=== PATIENT | male | born 1950 | race Hispanic/Latino ===

== ENCOUNTER → 2021-12-26 | Outpatient (CLI) | payer OTHER ==
[~2021-12-26] MED LIST: LISI20TA24 PO
== END | disposition home or self-care (01) ==
LOC: RAH 12:31
PROVIDERS: ATTEND Family Medicine
DX: G45.9 Transient cerebral ischemic attack, unspecified (principal)
CPT/HCPCS: 93880

== ENCOUNTER → 2022-01-25 | Outpatient (CLI) | payer OTHER | END | disposition home or self-care (01) | LOC: RAH 13:13 | PROVIDERS: ATTEND Internal Medicine | DX: I35.1 Nonrheumatic aortic (valve) insufficiency (principal); I11.9 Hypertensive heart disease without heart failure; I77.810 Thoracic aortic ectasia; G45.9 Transient cerebral ischemic attack, unspecified | CPT/HCPCS: 93306; 96374; A4216 ==

== ENCOUNTER → 2022-03-29 | Outpatient (CLI) | payer OTHER | END | disposition home or self-care (01) | LOC: RAH 13:03 | PROVIDERS: ATTEND Family Medicine | DX: Z01.818 Encounter for other preprocedural examination (principal) | CPT/HCPCS: 93926 ==

== ENCOUNTER → 2022-07-12 | Outpatient (CLI) | payer OTHER ==
[~2022-07-12] MED LIST changes: +AEC81 PO; +AMLO-258 PO; +ATOR10 PO; +ATOR40TA69 PO; +LISI40TA9 PO; +METF-444 PO; +METO5 PO; +PANT40TA55 PO
[2022-07-12 12:34] VITALS: BP 138/75
[2022-07-12 12:34] LABS: BASOPHILS % (AUTO) 1.3 % (0.0-5.0); EOSINOPHILS % (AUTO) 4.4 % (0.0-8.0); LYMPHOCYTES % (AUTO) 21.1 % (21.0-51.0); MEAN CORPUSCULAR HEMOGLOBIN 30.9 pg (27.0-33.0); MEAN CORPUSCULAR HGB CONC 33.3 g/dL (32.0-36.0); MEAN CORPUSCULAR VOLUME 92.6 fL (79-99); MONOCYTES % (AUTO) 13.4 % (3.0-13.0); NEUTROPHILS % (AUTO) 59.6 % (40.0-77.0); PLATELET COUNT (AUTO) 192 K/uL (130-400); RED BLOOD CELL COUNT(AUTO) 4.86 MIL/uL (4.50-6.20); RED CELL DISTRIBUTION WIDTH 12.6 % (11.0-15.5); WHITE BLOOD COUNT (AUTO) 5.4 K/uL (4.8-10.8)
[2022-07-12 12:50] LABS: INR 1.05 (0.85-1.15); PROTHROMBIN TIME 11.4 SEC (9.6-11.6)
[2022-07-12 12:51] LABS: PARTIAL THROMBOPLASTIN TIME 29.8 SEC (26.3-35.5)
[2022-07-12 13:09] LABS: POTASSIUM 4.4 mmol/L (3.5-5.1)
== END | disposition home or self-care (01) ==
LOC: DAH 10:00 → EDSTATUS 07-18 07:00
PROVIDERS: ATTEND Orthopaedic Surgery
DX: Z01.818 Encounter for other preprocedural examination (principal); M17.12 Unilateral primary osteoarthritis, left knee; M85.88 Other specified disorders of bone density and structure, other site; K21.9 Gastro-esophageal reflux disease without esophagitis; I13.10 Hypertensive heart and chronic kidney disease without heart failure, with stage 1 through stage 4 chronic kidney disease, or unspecified chronic kidney disease; E11.22 Type 2 diabetes mellitus with diabetic chronic kidney disease; N18.2 Chronic kidney disease, stage 2 (mild); I49.3 Ventricular premature depolarization; I35.1 Nonrheumatic aortic (valve) insufficiency; E55.9 Vitamin D deficiency, unspecified; I73.89 Other specified peripheral vascular diseases; I83.93 Asymptomatic varicose veins of bilateral lower extremities; E78.00 Pure hypercholesterolemia, unspecified; N40.1 Benign prostatic hyperplasia with lower urinary tract symptoms; Z79.899 Other long term (current) drug therapy; Z20.822 Contact with and (suspected) exposure to COVID-19
CPT/HCPCS: 80048; 85025; 85610; 85730; 87426; 36415; 73700; 87641; A6260

== ENCOUNTER 2022-08-15 05:57 | Observation (INO) | payer OTHER ==
[2022-08-14 11:44] LABS: BASOPHILS % (AUTO) 0.9 % (0.0-5.0); EOSINOPHILS % (AUTO) 5.3 % (0.0-8.0); HEMATOCRIT 42.4 % (42-54); LYMPHOCYTES % (AUTO) 26.1 % (21.0-51.0); MEAN CORPUSCULAR HEMOGLOBIN 30.5 pg (27.0-33.0); MEAN CORPUSCULAR HGB CONC 32.5 g/dL (32.0-36.0); MEAN CORPUSCULAR VOLUME 93.8 fL (79-99); MONOCYTES % (AUTO) 10.4 % (3.0-13.0); NEUTROPHILS % (AUTO) 56.9 % (40.0-77.0); PLATELET COUNT (AUTO) 150 K/uL (130-400); RED BLOOD CELL COUNT(AUTO) 4.52 MIL/uL (4.50-6.20); WHITE BLOOD COUNT (AUTO) 5.3 K/uL (4.8-10.8)
[2022-08-14 12:11] VITALS: BP 156/80
[2022-08-14 12:13] LABS: CREATININE 0.8 mg/dL (0.5-1.5); POTASSIUM 4.2 mmol/L (3.5-5.1); PROTHROMBIN TIME 10.9 SEC (9.6-11.6)
[~2022-08-15] VITALS: Ht 180.3 cm; Wt 85.3 kg
[2022-08-15] VITALS (25 sets, daily range): BP systolic 92–143; BP diastolic 56–85
[~2022-08-15 05:57] MED LIST changes: -ATOR10 PO; -LISI20TA24 PO; -LISI40TA9 PO; -METO5 PO
[2022-08-15] MEDS ORDERED: CEFAZOLIN SODIUM 1 GM VIAL IVPB SCH (06:00)
[2022-08-15] MEDS ORDERED: 0.9%NACL 1000ML 1,000 ML IV ONE (06:41)
[2022-08-15] MEDS ORDERED: TRANEXAMIC ACID 1000MG/10ML ONE (07:22)
[2022-08-15] MEDS ORDERED: LIDOCAINE PF 100MG/5ML (2%) SYRINGE 5ML ONE (07:28)
[2022-08-15] MEDS ORDERED: SUCCINYLCHOLINE 200MG/10ML SYR ONE (07:28)
[2022-08-15] MEDS ORDERED: ROCURONIUM 10MG/1ML SYR 10 MG/ML ML ONE (07:29)
[2022-08-15] MEDS ORDERED: DEXAMETHASONE SOD PHOSPHATE 10MG/ML 1ML VIAL ONE (07:29)
[2022-08-15] MEDS ORDERED: ONDANSETRON 4MG INJ ONE (07:29)
[2022-08-15] MEDS ORDERED: PROPOFOL 10 MG/ML 20ML VIAL IV ONE (07:29)
[2022-08-15] MEDS ORDERED: GLYCOPYRROLATE 1 MG/5 ML SYRINGE ONE (07:29)
[2022-08-15] MEDS ORDERED: NEOSTIGMINE 5MG/5ML SYR IV ONE (07:29)
[2022-08-15] MEDS ORDERED: MIDAZOLAM HCL 1 MG/ML 2ML VIAL ONE (07:29)
[2022-08-15] MEDS ORDERED: FENTANYL CITRATE PF 50 MCG/1 ML 2ML VIAL ONE (07:30)
[2022-08-15] MEDS ORDERED: ROPIVACAINE 0.5% 5MG/ML 30ML IJ ONE (07:40)
[2022-08-15] MEDS ORDERED: LIDOCAINE HCL-MPF 2% 10ML AMP IJ ONE (07:43)
[2022-08-15] MEDS ORDERED: CEFAZOLIN SODIUM 2 GM VIAL IVPB ONE (08:35)
[2022-08-15] MEDS ORDERED: EPHEDRINE SULFATE 50 MG/ML AMPULE ONE (09:00)
[2022-08-15] MEDS ORDERED: POTASSIUM CHLORIDE 10% ELIXIR 20 MEQ/15 ML UDCUP PO PRN (09:30)
[2022-08-15] MEDS ORDERED: POTASSIUM CHLORIDE 20MEQ/100ML 100 ML IV PRN (09:30)
[2022-08-15] MEDS ORDERED: KCL 20 MEQ ERTAB PO PRN (09:30)
[2022-08-15] MEDS ORDERED: ONDANSETRON 4MG INJ IVP PRN (09:30)
[2022-08-15] MEDS ORDERED: HYDROCODONE/ACETAMINOPHEN 5/325 MG TAB PO PRN (09:30)
[2022-08-15] MEDS ORDERED: MORPHINE 4 MG SYG IVP PRN (09:30)
[2022-08-15] MEDS ORDERED: KETOROLAC 30MG VIAL (30MG/ML) ONE (10:12)
[2022-08-15] MEDS: ACETAMINOPHEN 1,000 MG/100 ML VIAL IV SCH ×3 (11:28→20:05)
[2022-08-15] MEDS ORDERED: MEPERIDINE-PF 25 MG/ML SYG ONE (11:31)
[2022-08-15] MEDS: TRAMADOL HCL 50 MG TABLET PO SCH ×4 (12:00→20:06)
[2022-08-15] MEDS: 0.9%NACL 1000ML 1,000 ML IV SCH ×2 (12:31→20:05)
[2022-08-15] MEDS: IBUPROFEN 800MG + NS 250ML IV SCH ×2 (13:37→20:05)
[2022-08-15] MEDS: CEFAZOLIN SODIUM 2 GM VIAL IVPB SCH (15:05)
[2022-08-15] MEDS: ASPIRIN 81 MG EC TAB PO SCH (20:06)
[2022-08-15] MEDS: PANTOPRAZOLE 40 MG TAB DR PO SCH (20:06)
[2022-08-15] MEDS: FAMOTIDINE 20MG TAB PO SCH (20:06)
[2022-08-16] VITALS (8 sets, daily range): BP systolic 95–170; BP diastolic 53–84
[2022-08-16] MEDS: CEFAZOLIN SODIUM 2 GM VIAL IVPB SCH (00:01)
[2022-08-16] MEDS: IBUPROFEN 800MG + NS 250ML IV SCH (03:10)
[2022-08-16] MEDS: TRAMADOL HCL 50 MG TABLET PO SCH ×3 (03:11→17:32)
[2022-08-16 04:50] LABS: HEMATOCRIT 36.9 % (42-54); MEAN CORPUSCULAR HEMOGLOBIN 30.3 pg (27.0-33.0); MEAN CORPUSCULAR VOLUME 94.6 fL (79-99); RED BLOOD CELL COUNT(AUTO) 3.9 MIL/uL (4.50-6.20); RED CELL DISTRIBUTION WIDTH 13.2 % (11.0-15.5); WHITE BLOOD COUNT (AUTO) 6.6 K/uL (4.8-10.8)
[2022-08-16 05:02] LABS: CREATININE 0.8 mg/dL (0.5-1.5); POTASSIUM 3.7 mmol/L (3.5-5.1)
[2022-08-16] MEDS: HYDROCODONE/ACETAMINOPHEN 10/325 MG TAB PO PRN ×3 (06:16→20:17)
[2022-08-16] MEDS: METFORMIN HCL 500 MG TAB.SR.24H PO SCH (08:57)
[2022-08-16] MEDS: ASPIRIN 81 MG EC TAB PO SCH ×2 (08:57→20:17)
[2022-08-16] MEDS: FAMOTIDINE 20MG TAB PO SCH ×2 (08:58→20:17)
[2022-08-16] MEDS: POLYETHYLENE GLYCOL 3350 17 GM POWD.PACK PO SCH (08:58)
[2022-08-16] MEDS: AMLODIPINE 5 MG TAB PO SCH (08:58)
[2022-08-16] MEDS: PANTOPRAZOLE 40 MG TAB DR PO SCH ×2 (08:58→20:17)
[2022-08-17] MEDS: HYDROCODONE/ACETAMINOPHEN 10/325 MG TAB PO PRN ×4 (01:13→15:46)
[2022-08-17 03:56] VITALS: BP 133/77
[2022-08-17] MEDS: TRAMADOL HCL 50 MG TABLET PO SCH ×4 (05:15→15:41)
[2022-08-17] MEDS: AMLODIPINE 5 MG TAB PO SCH (07:50)
[2022-08-17] MEDS: ASPIRIN 81 MG EC TAB PO SCH (07:50)
[2022-08-17] MEDS: METFORMIN HCL 500 MG TAB.SR.24H PO SCH (07:50)
[2022-08-17] MEDS: FAMOTIDINE 20MG TAB PO SCH (07:50)
[2022-08-17] MEDS: POLYETHYLENE GLYCOL 3350 17 GM POWD.PACK PO SCH (07:50)
[2022-08-17] MEDS: PANTOPRAZOLE 40 MG TAB DR PO SCH (07:50)
[2022-08-17 07:54] VITALS: BP 156/95
[2022-08-17 11:32] VITALS: BP 160/85
[2022-08-17 15:27] VITALS: BP 142/69
[2022-08-18] MEDS ORDERED: BISACODYL 10 MG SUPP.RECT RC PRN (09:30)
== END 2022-08-17 16:30 | disposition home or self-care (01) ==
LOC: DAH 05:57 → DAHIP 05:58 → DAH 05:58 → 4AH 12:15
PROVIDERS: ADMIT Orthopaedic Surgery; ATTEND Orthopaedic Surgery
DX: M17.12 Unilateral primary osteoarthritis, left knee (principal); Z20.822 Contact with and (suspected) exposure to COVID-19; I10 Essential (primary) hypertension; E11.9 Type 2 diabetes mellitus without complications; E78.00 Pure hypercholesterolemia, unspecified; Z68.27 Body mass index [BMI] 27.0-27.9, adult; Z79.899 Other long term (current) drug therapy
CPT/HCPCS: 80048 ×2; 85025; 85610; 85730; 87426; 36415 ×2; 87641; 27447; 64447; 96376; 96365; 96366 ×2; 96375 ×3; 96368; 82948 ×2; 85027; 97161; 97039 ×3; 97116 ×4; 97530 ×3; A6260; G0378 ×53; A4663; J7030 ×2; A4600 ×2; J3010; J0690 ×4; J3490 ×4; J0330; J1100; J2710; J2001; J2250; J2704; J2405 ×2; J1885; J2175; J2795; J1741 ×3; A6223; G0168; A4649 ×3; A6212; C1776 ×4; A5120; A4215; A4223; A4222; A4221; A6450; J2270

== ENCOUNTER 2024-08-05 18:11 | Inpatient (IN) | payer OTHER ==
[~2024-08-05] VITALS: Ht 177.8 cm; Wt 86.6 kg
[2024-08-05] MEDS ORDERED: IOHEXOL 350 MG/ML 100ML INFUS..BTL IV ONE (18:28)
[2024-08-05 18:39] LABS: BASOPHILS # (AUTO) 0.08 K/uL (0.00-0.20); BASOPHILS % (AUTO) 0.6 % (0.0-5.0); EOSINOPHILS # (AUTO) 0.02 K/uL (0.00-0.70); EOSINOPHILS % (AUTO) 0.1 % (0.0-8.0); IMMATURE GRANULOCYTE ABSOLUTE 0.08 K/uL (0-1); LYMPHOCYTES # (AUTO) 1.5 K/uL (1.0-4.8); LYMPHOCYTES % (AUTO) 10.9 % (21.0-51.0); MEAN CORPUSCULAR HEMOGLOBIN 31.6 pg (27.0-33.0); MEAN CORPUSCULAR HGB CONC 33.3 g/dL (32.0-36.0); MEAN CORPUSCULAR VOLUME 94.9 fL (79-99); MONOCYTES # (AUTO) 1.1 K/uL (0.1-1.0); NEUTROPHILS # (AUTO) 11.2 K/uL (1.8-7.7); NEUTROPHILS % (AUTO) 79.8 % (40.0-77.0); PLATELET COUNT (AUTO) 218 K/uL (130-400); RED BLOOD CELL COUNT(AUTO) 5.06 MIL/uL (4.50-6.20); RED CELL DISTRIBUTION WIDTH 13.3 % (11.0-15.5); WHITE BLOOD COUNT (AUTO) 14.1 K/uL (4.8-10.8)
--- NOTE | 2024-08-05 18:44 | ERN ---
ED Note History of Present Illness Stated Complaint: FALL Chief Complaint: Trauma Activation Time Seen by MD: 18:15 Time Seen by Midlevel: 18:15 Dictation: 74-year-old male presents to the ED for evaluation after falling 2 hours prior to arrival. Patient reports ground level fall when he hit a rail with a left shoulder and also hit his head. Denies LOC, blood thinners. Reports swelling noted to the neck and head. Denies any difficulty breathing. Allergies: Coded Allergies: No Known Drug Allergies (Unverified Allergy, Unknown, 02/04/15) Home Meds Active Scripts Amlodipine Besylate (Amlodipine Besylate) 10 Mg Tablet, 10 MG PO DAILY for 30 Days, #30 TAB 0 Refills Prov:ILAN HENAO 07/20/22 Pantoprazole Sodium (Protonix) 40 Mg Ectab, 40 MG PO BID, #60 TAB.EC Prov:ILAN HENAO 07/20/22 Reported Medications Aspirin (ASPIRIN 81 MG ECTAB) 81 Mg Ectab, 81 MG PO DAILY, TAB.EC 07/16/22 Atorvastatin Calcium (LIPITOR) 40 Mg Tablet, 40 MG PO DAILY, TAB 07/16/22 Metformin HCl (Metformin HCl) 500 Mg Tablet, 500 MG PO DAILY, TAB 07/16/22 Past Medical History Past Medical History: No Pertinent History, High Cholesterol, Hypertension Surgical History: Other Surgical History Other: RIGHT KNEE SURGERY RN Note Reviewed/Agreed w/PFSH: Yes Review of System Dictation CONSTITUTIONAL: Negative except for HPI HEAD/FACE: Negative except for HPI EENT: Negative except for HPI RESPIRATORY: Negative except for HPI GASTROINTESTINAL/ABDOMINAL: Negative except for HPI GENITOURINARY: Negative except for HPI MUSCULOSKELETAL: Negative except for HPI INTEGUMENTARY: Negative except for HPI NEUROLOGICAL/PSYCH: Negative except for HPI HEMATOLOGIC/LYMPHATIC: Negative except for HPI All Systems Negative, Except as noted above. 13 point review of systems assessed and all negative except for above. Review of Systems: was completed Initial Vital Sign VS Vital Signs Date Time Temp Pulse Resp B/P (MAP) Pulse Ox O2 Delivery O2 Flow Rate FiO2 08/05/24 18:13 98.1 89 20 161/88 96 Room Air 0 Physical Exam Dictation Vital Signs reviewed General Appearance: Alert, oriented x 3, no acute distress, well developed, nourished. Head and Face: non-traumatic. Eyes: PERRL, pink conjunctivas, eyelid no trauma, anterior chamber with arcus senilis. Ears: Pinnas intact and no signs of trauma or erythema ear canals clear and no discharge TM no erythema Nose: No discharge, no bleeding. Oropharynx: Mouth normal, tongue pink, pharynx clear,no erythema, tonsils no exudates, no abscesses noted, mucous membrane moist Neck: Supple, non-tender, no thyromegaly, no masses, no JVD, no bruits Breast:Deferred Chest:No tenderness, + crepitus to left chest wall area and neck, no paradoxical movement, no retractions Lungs:Clear, well-ventilated, symmetric, no rales, no wheezing, no rhonchi, no stridor, good breath sounds bilaterally Heart: Regular rate, regular rhythm, no murmur, no gallops Vascular: no peripheral edema, Abdomen: Soft, positive bowel sounds, nondistended, no guarding, nontender, no rebound, no masses no hepatomegaly, no splenomegaly, no Bartholomew's sign, no hernias. Rectal: Deferred Genital: Deferred Neurological: Normal speech, motor function intact, sensory function intact Musculoskeletal: Neck nontender, full range of motion, back nontender, full range of motion, Extremities: nontender, full range of motion Skin: Color pink, dry, no turgor, no rash, no lacerations, no abrasions, no contusions. Lymphatic: Deferred Results (Laboratory/Radiology) Laboratory/Radiology Laboratory Tests Test 08/05/24 18:27 White Blood Count 14.1 K/uL (4.8-10.8) H Red Blood Count 5.06 MIL/uL (4.50-6.20) Hemoglobin 16.0 g/dL (14.0-18.0) Hematocrit 48.0 % (42-54) Mean Corpuscular Volume 94.9 fL (79-99) Mean Corpuscular Hemoglobin 31.6 pg (27.0-33.0) Mean Corpuscular Hemoglobin Concent 33.3 g/dL (32.0-36.0) Red Cell Distribution Width 13.3 % (11.0-15.5) Platelet Count 218 K/uL (130-400) Mean Platelet Volume 11.1 fL (7.5-10.5) H Immature Granulocyte % (Auto) 0.6 % (0-1) Neutrophils (%) (Auto) 79.8 % (40.0-77.0) H Lymphocytes (%) (Auto) 10.9 % (21.0-51.0) L Monocytes (%) (Auto) 8.0 % (3.0-13.0) Eosinophils (%) (Auto) 0.1 % (0.0-8.0) Basophils (%) (Auto) 0.6 % (0.0-5.0) Neutrophils # (Auto) 11.2 K/uL (1.8-7.7) H Lymphocytes # (Auto) 1.5 K/uL (1.0-4.8) Monocytes # (Auto) 1.1 K/uL (0.1-1.0) H Eosinophils # (Auto) 0.02 K/uL (0.00-0.70) Basophils # (Auto) 0.08 K/uL (0.00-0.20) Absolute Immature Granulocyte (auto 0.08 K/uL (0-1) Nucleated Red Blood Cells 0.0 % (0.0-0.19) Prothrombin Time 10.9 SEC (9.6-11.6) Prothromb Time International Ratio 1.03 (0.85-1.15) Activated Partial Thromboplast Time 24.5 SEC (26.3-35.5) L Sodium Level 142 mmol/L (136-145) Potassium Level 4.3 mmol/L (3.5-5.1) Chloride Level 106 mmol/L (101-111) Carbon Dioxide Level 31 mmol/L (21-32) Blood Urea Nitrogen 25 mg/dL (7-18) H Creatinine 1.6 mg/dL (0.5-1.3) H Glomerular Filtration Rate Calc 45 mL/min (>90) Random Glucose 112 mg/dL (70-105) H Total Calcium 9.3 mg/dL (8.5-10.1) Troponin I High Sensitivity 8 ng/L (4-75) Labs Reviewed?: Yes ED Course ED Course Orders Procedure Category Date Status Time Ct Head/Brain W/O CT 08/05/24 Resulted Contrast 18:22 Ct Cervical Spine W/O CT 08/05/24 Resulted Contrast 18:22 Ct Chest/Abd/Pelv CT 08/05/24 Resulted W/Conrast 18:22 Shoulder Comp 2+Vws Lt RAD 08/05/24 Resulted 18:22 Iohexol (Omnipaque) PHA 08/05/24 Complete 18:28 Cbc With Differential LAB 08/05/24 Complete 18:32 Basic Metabolic Panel LAB 08/05/24 Complete 18:32 Pt And Ptt LAB 08/05/24 Complete 18:32 12 Lead Ekg Tracing- EKG 08/05/24 Complete Technical 18:32 Troponin I High LAB 08/05/24 Complete Sensitivity 18:32 *Nursing CPOE 08/05/24 Transmitted Communication: 19:00 Current Medications Medications (Trade) Dose Ordered Sig/Judi Route PRN Reason Start Time Stop Time Status Last Admin Dose Admin Iohexol (Omnipaque) 35,000 mg STK-MED ONCE IV 08/05/24 18:28 08/05/24 18:28 DC Vital Signs Date Time Temp Pulse Resp B/P (MAP) Pulse Ox O2 Delivery O2 Flow Rate FiO2 08/05/24 18:13 98.1 89 20 161/88 96 Room Air 0 1847 Patient also evaluated by supervising physician Dr. Da Silva and care was transitioned to him. 190 Patient care transitioned to Dr. Drake Medical Decision Making MDM Patient's CT scan of his head was negative except for extensive subcutaneous air along both sides of his neck. CT scan of patient's abdomen was negative except for subcutaneous air along the abdominal wall. CT scan of the patient's chest shows extensive pneumomediastinum extensive subcu emphysema and a small apical pneumothorax on the patient's left chest as well as to displaced rib fractures on T4 and T3. Clavicles intact.. The patient is breathing comfortably maintaining greater than 90% oxygen saturations on room air and complaining of not much pain on his left chest wall. I discussed the patient with the trauma surgeon at [facility] who felt that the patient was stable enough to be observed here if our general surgeon on-call would be willing to accept the patient. I did talk with Dr. Duncan and he is willing to observe the patient on telemetry. Critical Care Note Critical Time: 30 minutes (Critical care time approximately 30 minutes observing the patient on telemetry observing his vital signs and oxygen saturation. Patient is now stable for telemetry.) DX & DISP Disposition: Inpatient Departure Impression: Primary Impression: Ribs, multiple fractures Condition: Stable Referrals: CARITO ROBLES MD (PCP) NELLA HURLEY August 05, 2024 18:44 DARLING DRAKE MD August 05, 2024 19:23
[2024-08-05 18:46] LABS: CREATININE 1.6 mg/dL (0.5-1.3); POTASSIUM 4.3 mmol/L (3.5-5.1)
--- NOTE | 2024-08-05 18:48 | HMCIMG ---
CT HEAD WITHOUT CONTRAST INDICATION: Fall TECHNIQUE: Noncontrast axial helical CT images from the vertex through the skull base using 5 mm slice thickness without contrast material. Coronal and sagittal reconstructions were also included. Dose reduction techniques was used using integrated, automated and adaptive dose reduction exposure control. CT was performed with one or more of the following dose reduction techniques: Automated exposure control, adjustment of the mA and/or kV according to patient size, or use of iterative reconstruction technique. COMPARISON: 04/06/2022 MR brain FINDINGS: Scattered and coalescent subcortical and periventricular white matter low attenuating areas likely represent residual of chronic small vessel arteriopathy and/or remote vascular insult. Generalized mild cerebral cortical atrophy is present.. No evidence for abnormal extra-axial fluid collections or masses. The ventricles and sulci are normal in size and configuration. No evidence for intracranial parenchymal, epidural, or subdural hemorrhage, mass effect or midline shift. The stark-white matter differentiation is well preserved. No secondary evidence to suggest acute ischemia. Mild calcific plaque is present along the marinelli of the cavernous segments of both internal carotid arteries. The brainstem and cerebellum appear normal. The visualized orbits appear unremarkable. The visible paranasal sinuses and mastoid air cells are clear. The calvarium appears normal. Extensive subcutaneous emphysema along the upper neck and bilateral face, including extension to around the right orbit and left frontotemporal greater than right temporal scalp. IMPRESSION: Extensive subcutaneous emphysema along the upper neck and bilateral face, including extension to around the right orbit and left frontotemporal greater than right temporal scalp, without fracture. Chronic white matter ischemic changes, mild brain atrophy, and arteriosclerotic disease as described, without acute component.
--- NOTE | 2024-08-05 18:52 | HMCIMG ---
CT CERVICAL SPINE WITHOUT CONTRAST INDICATION: Neck pain after fall TECHNIQUE: Contiguous axial computed tomography imaging using 2 mm slice thickness through the cervical spine. Reconstructions in the sagittal and coronal planes. CT was performed with one or more of the following dose reduction techniques: Automated exposure control, adjustment of the mA and/or kV according to patient size, or use of iterative reconstruction technique. COMPARISON: None. FINDINGS: Extensive subcutaneous emphysema along the bilateral neck including extension into the mediastinum along with small left pulmonary apical pneumothorax associated. Straightening of the normal lordosis may be related to overlying muscle spasm, underlying degenerative joint disease and/or patient positioning. Vertebral bodies are normal stature without evidence for compression deformity or fracture. No evidence for subluxation. Multilevel mild to moderate cervical spondylosis. The craniocervical junction appears normal. The atlantoaxial articulation is within normal limits. The dens is intact. The pre- and paravertebral soft tissues appear unremarkable. IMPRESSION: Extensive subcutaneous emphysema along the bilateral neck including extension into the mediastinum along with small left pulmonary apical pneumothorax associated. No evidence for fracture or subluxation.
[2024-08-05 18:57] LABS: INR 1.03 (0.85-1.15); PROTHROMBIN TIME 10.9 SEC (9.6-11.6)
--- NOTE | 2024-08-05 18:57 | HMCIMG ---
LEFT SHOULDER RADIOGRAPHS - 2-3 VIEWS INDICATION: Pain COMPARISON: None FINDINGS: No evidence for left shoulder fracture or dislocation. Acromioclavicular and glenohumeral alignments are well maintained. Visible portions of the left clavicle are intact. Nondisplaced posterior left third and fourth rib fractures. Extensive subcutaneous emphysema along the bilateral neck and chest as well as left shoulder girdle, including small left pulmonary apical pneumothorax. IMPRESSION: Nondisplaced posterior left third and fourth rib fractures, and small left pulmonary apical pneumothorax. Extensive subcutaneous emphysema along the bilateral neck and chest as well as left shoulder girdle.
[2024-08-05 18:59] LABS: PARTIAL THROMBOPLASTIN TIME 24.5 SEC (26.3-35.5)
--- NOTE | 2024-08-05 19:01 | HMCIMG ---
CT CHEST WITH CONTRAST. CT ABDOMEN WITH CONTRAST. CT PELVIS WITH CONTRAST INDICATION: Fell on left side, left shoulder pain TECHNIQUE: Routine 5 mm thick axial images were acquired from the thoracic inlet through the pelvis after the intravenous administration of 100 mL of Isovue [address] was performed with one or more of the following dose reduction techniques: Automated exposure control, adjustment of the mA and/or kV according to patient size, or use of iterative reconstruction technique. COMPARISON: None FINDINGS: Extensive subcutaneous emphysema along both sides of the neck, left greater than right chest, and lateral left abdominal wall, including air throughout the mediastinum, and small less than 5-10% left pulmonary apical pneumothorax secondary to displaced comminuted lateral left third rib fracture, displaced and slightly overlapped lateral left fourth rib fracture. Small amount of pleural air at the left lung base. CT CHEST: Sternum is intact. The heart size is normal. Coronary arterial wall calcific plaque noted. No pericardial effusion noted. Mild calcific plaque is present along the aortic arch and thoracic aortic marinelli without aneurysmal dilation or dissection. Aberrant right subclavian artery as an incidental finding and normal variant. The trachea and airways are patent. No evidence for pulmonary nodule, consolidation, cavitary lesion, or other abnormal pulmonary parenchymal opacity. No axillary, hilar, or mediastinal lymphadenopathy. No pleural effusion or pneumothorax identified. CT ABDOMEN: Tiny hiatal hernia. The liver is normal in size and smooth in contour without lesions or biliary duct dilation. Diffuse low attenuation of the liver parenchyma suggests fatty change. The spleen is normal in size.. The gallbladder appears normal. The pancreas appears normal without pancreatic duct dilation. The adrenal glands appear normal. Multiple simple bilateral renal cysts. No evidence for intra-abdominal free air or free or organized fluid collection. No aortic aneurysmal dilation.. No evidence for mesenteric edema. CT PELVIS: Several diverticula along the distal colon without abnormal bowel dilation. Terminal ileum also appears normal. The appendix appears normal. Visible osseous structures are intact. IMPRESSION: 1. Extensive subcutaneous emphysema along both sides of the neck, left greater than right chest, and lateral left abdominal wall, including air throughout the mediastinum, and small less than 5-10% left pulmonary apical pneumothorax as well as small amount of pleural air at the left lung base secondary to displaced comminuted lateral left third rib fracture, displaced and slightly overlapped lateral left fourth rib fracture. 2. Hepatic steatosis. 3. Distal colonic diverticulosis. 4. Tiny hiatal hernia. 5. Arteriosclerotic disease as described. 6. Additional minor findings and pertinent negatives as reported.
--- NOTE | 2024-08-05 19:03 | EKG ---
[facility] Test Date: 2024-08-05 Test Time: 19:01:03 Pat Name: RODERICK BROWN Department: [facility] Room: 205 Gender: M [employer] Manager: [id number] : 1950 Requested By: NELLA HURLEY Order Number: [id number] Reading MD: Farheen Chin Measurements Intervals Lohman Rate: 71 P: 13 MT: 176 QRS: 7 QRSD: 93 T: 96 QT: 390 QTc: 424 Interpretive Statements Sinus rhythm Atrial premature complex Low voltage, precordial leads Compared to ECG 07/15/2022 22:17:42 No significant changes Electronically Signed On 08-06-2024 09:19:11 CDT by Farheen Chin Please click the below link to view image of tracing.
[2024-08-05] MEDS: morPHINE 2 MG SYG IVP PRN (20:20)
[2024-08-05] MEDS: LIDOCAINE 4% ADH..PATCH TP ONE (20:20)
--- NOTE | 2024-08-05 21:25 | NUR ---
SPOKE TO DR SLOAN CONCERNING INCREASED SUBCUTANEOUS EMPHYSEMA ALONG THE FACE AND NECK. ORDERS TO HAVE BENCHMARK SEE PATIENT AND THEN CALL HIM. ALTAGRACIA VASQUES CLAMPER IN THE ER DEPARTMENT, NOTIFIED, ORDERS FOR REPEAT CHEST XRAY
[2024-08-05] MEDS: methoCARBamol 500 MG TABLET PO SCH (21:45)
[2024-08-05] MEDS ORDERED: traMADol HCL 50 MG TABLET PO PRN (22:00)
--- NOTE | 2024-08-05 22:02 | CONS ---
[facility] CONSULTATION NOTE Date Patient Seen: August 05, 2024 Time of Visit: 21:50 Supervising Physician: Dr. Thong Quinteros Reason for Consultation: Left pneumothorax , multiple rib fracture secondary to fall Consult Physician: Dr. Duncan Outpatient Specialists: [ ] Inpatient Consults: [ ] PROBLEM LIST: Acute hypoxic respiratory failure, POA Left-sided pneumothorax, apical, 5-10% POA Subcutaneous emphysema POA Pneumomediastinum POA Multiple rib fracture, POA Ground level fall Acute pain, POA Hypertension, POA Hyperlipidemia, POA DM type POA PLAN: Admit to PCCU Keep patient NPO for now VS per unit protocol Continue non-rebreather Keep head of bed above 30� Repeat chest x-ray in 6 hours Complete bedrest for now Multimodal pain relief Incentive spirometry Cardiac monitoring Keep potassium level above four, magnesium level above two Keep SBP less than 160 P.r.n. hydralazine and labetalol ISS and fingerstick per unit protocol Rest of plan care of Trauma Service HPI: 74-year-old male with past medical history of hypertension, hyperlipidemia, DM type who presented to the ED trauma alert following a fall 2 hour prior to admission. Per report patient fell and hit a rail with a left shoulder as well as his head. There is no reported loss of consciousness or use of blood thinners. Afterwards patient developed left shoulder pain prompting activation of EMS. In ED stat head CT was done showed no acute intracranial abnormality, however his CT of the chest showed extensive subcutaneous emphysema along both sides of neck, left greater than right chest and lateral left abdominal wall including air throughout the mediastinum and small air in the left pulmonary area approximately 5-10%. There is also displaced comminuted lateral left 3rd rib, displaced and slightly overlapped lateral left 4th rib fracture. [place] [address], hemoglobin of 16, and hematocrit of 48, his chemistry is notable for creatinine level of 1.6, and BUN of 25. BIS pulmonology is consulted for acute hypoxic respiratory failure and possible chest tube placement. Patient was seen and examined in ED with daughter present at bedside. At present patient is currently on non-rebreather, hemodynamically stable, not in acute respiratory distress, but noticeable swelling in the face neck and upper chest. Patient denies any headache, difficulty breathing, or any chest pressure. Patient denies any smoking, alcohol intake, illicit drug use. Patient is vaccinated against COVID virus and his flu shot is up-to-date. PAST MEDICAL HX: see above PAST SURGICAL HX: noncontributory SOCIAL HISTORY: No tobacco, ETOH, or illicit drug use Coded Allergies: No Known Drug Allergies (Unverified Allergy, Unknown, 02/04/15) REVIEW OF SYSTEMS: 12 point ROS reviewed with patient. Pertinent positives mentioned above. Otherwise negative. PHYSICAL EXAM: GENERAL: alert, weak, awake oriented x 3 HEENT: Severe subcutaneous emphysema NECK: Superior subcutaneous emphysema LUNGS: Diminished bibasilar area on auscultation; tenderness to left chest wall on palpation HEART: Regular rate and rhythm. Normal S1 and S2, without murmurs ABD: Abdomen soft, nontender. Bowel sounds present EXT: No clubbing cyanosis or edema NEURO: Alert and oriented to person, follows commands Vital Signs (last 8hr) Date Time Temp Pulse Resp B/P (MAP) Pulse Ox O2 Delivery O2 Flow Rate FiO2 08/05/24 18:13 98.1 89 20 161/88 96 Room Air 0 LABS: Hematology Labs: Test 08/05/24 18:27 Range/Units White Blood Count 14.1 H 4.8-10.8 K/uL Red Blood Count 5.06 4.50-6.20 MIL/uL Hemoglobin 16.0 14.0-18.0 g/dL Hematocrit 48.0 42-54 % Mean Corpuscular Volume 94.9 79-99 fL Mean Corpuscular Hemoglobin 31.6 27.0-33.0 pg Mean Corpuscular Hemoglobin Concent 33.3 32.0-36.0 g/dL Red Cell Distribution Width 13.3 11.0-15.5 % Platelet Count 218 130-400 K/uL Mean Platelet Volume 11.1 H 7.5-10.5 fL Immature Granulocyte % (Auto) 0.6 0-1 % Neutrophils (%) (Auto) 79.8 H 40.0-77.0 % Lymphocytes (%) (Auto) 10.9 L 21.0-51.0 % Monocytes (%) (Auto) 8.0 3.0-13.0 % Eosinophils (%) (Auto) 0.1 0.0-8.0 % Basophils (%) (Auto) 0.6 0.0-5.0 % Neutrophils # (Auto) 11.2 H 1.8-7.7 K/uL Lymphocytes # (Auto) 1.5 1.0-4.8 K/uL Monocytes # (Auto) 1.1 H 0.1-1.0 K/uL Eosinophils # (Auto) 0.02 0.00-0.70 K/uL Basophils # (Auto) 0.08 0.00-0.20 K/uL Absolute Immature Granulocyte (auto 0.08 0-1 K/uL Nucleated Red Blood Cells 0.0 0.0-0.19 % Chemistry Labs: Test 08/05/24 18:27 Range/Units Sodium Level 142 136-145 mmol/L Potassium Level 4.3 3.5-5.1 mmol/L Chloride Level 106 101-111 mmol/L Carbon Dioxide Level 31 21-32 mmol/L Blood Urea Nitrogen 25 H 7-18 mg/dL Creatinine 1.6 H 0.5-1.3 mg/dL Glomerular Filtration Rate Calc 45 >90 mL/min Random Glucose 112 H 70-105 mg/dL Total Calcium 9.3 8.5-10.1 mg/dL Troponin I High Sensitivity 8 4-75 ng/L Coagulation Labs: Test 08/05/24 18:27 Range/Units Prothrombin Time 10.9 9.6-11.6 SEC Prothromb Time International Ratio 1.03 0.85-1.15 Activated Partial Thromboplast Time 24.5 L 26.3-35.5 SEC DIAGNOSTICS / RADIOLOGY RESULTS: CT CHEST WITH CONTRAST. CT ABDOMEN WITH CONTRAST. CT PELVIS WITH CONTRAST INDICATION: Fell on left side, left shoulder pain TECHNIQUE: Routine 5 mm thick axial images were acquired from the thoracic inlet through the pelvis after the intravenous administration of 100 mL of Isovue [address] was performed with one or more of the following dose reduction techniques: Automated exposure control, adjustment of the mA and/or kV according to patient size, or use of iterative reconstruction technique. COMPARISON: None FINDINGS: Extensive subcutaneous emphysema along both sides of the neck, left greater than right chest, and lateral left abdominal wall, including air throughout the mediastinum, and small less than 5-10% left pulmonary apical pneumothorax secondary to displaced comminuted lateral left third rib fracture, displaced and slightly overlapped lateral left fourth rib fracture. Small amount of pleural air at the left lung base. CT CHEST: Sternum is intact. The heart size is normal. Coronary arterial wall calcific plaque noted. No pericardial effusion noted. Mild calcific plaque is present along the aortic arch and thoracic aortic marinelli without aneurysmal dilation or dissection. Aberrant right subclavian artery as an incidental finding and normal variant. The trachea and airways are patent. No evidence for pulmonary nodule, consolidation, cavitary lesion, or other abnormal pulmonary parenchymal opacity. No axillary, hilar, or mediastinal lymphadenopathy. No pleural effusion or pneumothorax identified. CT ABDOMEN: Tiny hiatal hernia. The liver is normal in size and smooth in contour without lesions or biliary duct dilation. Diffuse low attenuation of the liver parenchyma suggests fatty change. The spleen is normal in size.. The gallbladder appears normal. The pancreas appears normal without pancreatic duct dilation. The adrenal glands appear normal. Multiple simple bilateral renal cysts. No evidence for intra-abdominal free air or free or organized fluid collection. No aortic aneurysmal dilation.. No evidence for mesenteric edema. CT PELVIS: Several diverticula along the distal colon without abnormal bowel dilation. Terminal ileum also appears normal. The appendix appears normal. Visible osseous structures are intact. IMPRESSION: 1. Extensive subcutaneous emphysema along both sides of the neck, left greater than right chest, and lateral left abdominal wall, including air throughout the mediastinum, and small less than 5-10% left pulmonary apical pneumothorax as well as small amount of pleural air at the left lung base secondary to displaced comminuted lateral left third rib fracture, displaced and slightly overlapped lateral left fourth rib fracture. 2. Hepatic steatosis. 3. Distal colonic diverticulosis. 4. Tiny hiatal hernia. 5. Arteriosclerotic disease as described. 6. Additional minor findings and pertinent negatives as reported. PLAN NEURO: Minimize central acting medications as possible. Maintain fall precautions, adequate lighting during the day PULMONARY: Supplemental 02 as needed. Maintain aspiration precautions at all times CARDIOVASCULAR: Follow hemodynamics. Vital signs per facility protocol GI & NUTRITION: Continue with nutritional support. Continue stool softeners and laxatives as needed. KIDNEYS & ELECTROLYTES: Strict monitoring of intake, output and overall fluid balance. Avoid nephrotoxic medications to the extent possible. Medications to be dosed according to renal function. Monitor electrolytes and replace as needed ENDOCRINE: Maintain blood glucose between 100-180 at all times. Hypoglycemia protocol in place INFECTIOUS DISEASE: Trend temperature, WBC and procalcitonin level Follow cultures, deescalate antibiotics as soon as possible. Panculture if new onset fever ONCOLOGY/HEMATOLOGY/COAGULATION: Monitor for s/s of bleeding Monitor hemoglobin, coagulation studies as needed SKIN: Pressure ulcer prevention per facility protocol Specialty mattress ORTHO/REHAB: Continue PT/OT Prophylaxis: Continue GI and DVT prophylaxis Code Status: Full Resuscitation Disposition: TBD Other: Total patient care time exceeds 35 minutes excluding all procedures. Supervising physician: ALTAGRACIA Dasilva APRN August 05, 2024 22:02
--- NOTE | 2024-08-05 22:25 | HMCIMG ---
PORTABLE CHEST RADIOGRAPH INDICATION: REPEAT TO EVAL LEFT PNEUMOTHORAX COMPARISON: 08/05/2024 CT chest FINDINGS/IMPRESSION: Trace residual left pulmonary apical pneumothorax and suspect trace pleural air near the left lung base. Remainder of the study is unchanged, including extensive pneumomediastinum and overlying subcutaneous bilateral neck and chest emphysema.
[2024-08-05] MEDS ORDERED: ALBUTEROL 0.083% 2.5 MG/3 ML INH IH PRN (22:30)
[2024-08-05] MEDS ORDERED: acetaMINOPHEN 325 MG TAB PO PRN (22:30)
[2024-08-05] MEDS ORDERED: acetaMINOPHEN 650 MG SUPPOSITORY RC PRN (22:30)
[2024-08-05] MEDS ORDERED: LAbetaLOL 20MG SYG IV PRN (22:30)
[2024-08-05] MEDS ORDERED: hydrALAZine 20MG/ML VIAL IV PRN (22:30)
[2024-08-05] MEDS ORDERED: ondanSETRON 4MG INJ IVP PRN (22:30)
[2024-08-05] MEDS: LACTATED RINGERS 1000ML 1,000 ML IV SCH (23:13)
[2024-08-05 23:36] VITALS: PULSE 70; RESP 18; O2SAT 100
[2024-08-06] VITALS (7 sets, daily range): BP systolic 130–142; BP diastolic 69–77; PULSE 55–65; RESP 18–22; TEMP 97–98.3; O2SAT 97–98
[2024-08-06] MEDS: INSULIN humuLIN R 100 UNIT/ML 3ML SQ SCH
--- NOTE | 2024-08-06 02:29 | NUR ---
CARE ASSUMED AT THIS TIME; PATIENT MOVED FROM TRAUMA BAY TO ED 20
[2024-08-06] MEDS: morPHINE 4 MG SYG IVP PRN (04:56)
[2024-08-06 07:10] LABS: BASOPHILS # (AUTO) 0.05 K/uL (0.00-0.20); BASOPHILS % (AUTO) 0.6 % (0.0-5.0); EOSINOPHILS # (AUTO) 0.13 K/uL (0.00-0.70); EOSINOPHILS % (AUTO) 1.5 % (0.0-8.0); HEMATOCRIT 42.2 % (42-54); IMMATURE GRANULOCYTE ABSOLUTE 0.02 K/uL (0-1); LYMPHOCYTES # (AUTO) 1.4 K/uL (1.0-4.8); LYMPHOCYTES % (AUTO) 16.7 % (21.0-51.0); MEAN CORPUSCULAR HEMOGLOBIN 32.1 pg (27.0-33.0); MEAN CORPUSCULAR HGB CONC 33.9 g/dL (32.0-36.0); MEAN CORPUSCULAR VOLUME 94.8 fL (79-99); MONOCYTES # (AUTO) 0.6 K/uL (0.1-1.0); MONOCYTES % (AUTO) 7.1 % (3.0-13.0); NEUTROPHILS # (AUTO) 6.3 K/uL (1.8-7.7); NEUTROPHILS % (AUTO) 73.9 % (40.0-77.0); PLATELET COUNT (AUTO) 188 K/uL (130-400); RED BLOOD CELL COUNT(AUTO) 4.45 MIL/uL (4.50-6.20); RED CELL DISTRIBUTION WIDTH 13.3 % (11.0-15.5); WHITE BLOOD COUNT (AUTO) 8.6 K/uL (4.8-10.8)
[2024-08-06 07:30] LABS: MAGNESIUM 1.8 mg/dL (1.80-2.40); PHOSPHORUS 3.9 mg/dL (2.5-4.9); POTASSIUM 4.1 mmol/L (3.5-5.1)
[2024-08-06] MEDS: polyETHYLene GLYCol 3350 17 GM POWD.PACK PO SCH (08:01)
[2024-08-06] MEDS: ASCORBIC ACID 500 MG TAB PO SCH (08:01)
--- NOTE | 2024-08-06 09:14 | HMCIMG ---
Exam Type: CHEST 1VW Clinical Information: ff cxr for pneumo Comparison: None Findings: Persistent left small mainly apical pneumothorax, with multiple left-sided rib fractures and bilateral chest wall emphysema, left side worse. Stable. Pulmonary pattern is as before. No worrisome interval changes have taken place. Impression: Stable exam.
--- NOTE | 2024-08-06 09:25 | HMCIMG ---
Exam Type: CHEST 1VW Clinical Information: TRAUMA, RIB PAIN/FX Comparison: None Findings and impression: Pulmonary pattern is as before. No worrisome interval changes have taken place. Impression: Stable exam.
--- NOTE | 2024-08-06 09:43 | NUR ---
DCP: HOME Pt currently lives with his Tiny Franks [phone] in their home. Pt does not currently have any home health or provider services at this time. Pt is able to complete ADLs independently. As per son Mauro Franks [phone] pt is very active and he had an "accident". PCP is Dr. Salome huff and uses [facility] for any RX needs. At [place] pt will return home and family will assist with transportation. Addendum: 08/06/24 at 0946 by JESSICA NAVARRETE SS Amended: Links added.
--- NOTE | 2024-08-06 10:03 | PN ---
[facility] PROGRESS NOTE Date Patient Seen: August 06, 2024 Time of Visit: 10:03 Supervising Physician: Ray Faye MD Consult Physician: Dr. Duncan Outpatient Specialists: [ ] Inpatient Consults: [ ] PROBLEM LIST: Acute hypoxic respiratory failure, POA Left-sided pneumothorax, apical, 5-10% POA Subcutaneous emphysema POA Pneumomediastinum POA Multiple rib fracture, POA Ground level fall Acute pain, POA Hypertension, POA Hyperlipidemia, POA DM type POA PLAN: PCCU care Heart healthy diet VS per unit protocol Continue non-rebreather at 100% Keep head of bed above 30� Repeat chest x-ray in 6 hours Complete bedrest for now Multimodal pain relief Incentive spirometry Cardiac monitoring Keep potassium level above four, magnesium level above two Keep SBP less than 160 P.r.n. hydralazine and labetalol ISS and fingerstick per unit protocol Rest of plan care of Trauma Service INTERVAL HISTORY: Patient is awake alert and oriented x3. No major overnight events. Patient is saturating 99% with 100% BUN non-rebreather. Laboratory unremarkable CK trending down four or five, 383, 367. Patient continues with some subcutaneous emphysema to right eyelid, both sides of the neck. As per family and patient he looks much better. He reports approximately 50% decreasing swelling to his face. There are no clinical signs of tension pneumothorax. We will monitor him closely for any signs of tension pneumo which we will require chest tube placement. For now patient to continue with the non-rebreather 100% FiO2. CT of the chest without contrast in the morning. REVIEW OF SYSTEMS: 12 point ROS reviewed with patient. Pertinent positives mentioned above. Otherwise negative. PHYSICAL EXAM: GENERAL: alert, weak, awake oriented x 3 HEENT: Severe subcutaneous emphysema NECK: Superior subcutaneous emphysema LUNGS: Diminished bibasilar area on auscultation; tenderness to left chest wall on palpation HEART: Regular rate and rhythm. Normal S1 and S2, without murmurs ABD: Abdomen soft, nontender. Bowel sounds present EXT: No clubbing cyanosis or edema NEURO: Alert and oriented to person, follows commands Vital Signs (last 8hr) Date Time Temp Pulse Resp B/P (MAP) Pulse Ox O2 Delivery O2 Flow Rate FiO2 08/06/24 08:25 98.1 60 22 130/73 100 Nonrebreathing Mask 60 08/06/24 07:54 98.1 66 18 135/70 99 Non-Rebreather+ 15 100 LABS: Hematology Labs: Test 08/06/24 06:57 Range/Units White Blood Count 8.6 # 4.8-10.8 K/uL Red Blood Count 4.45 L 4.50-6.20 MIL/uL Hemoglobin 14.3 14.0-18.0 g/dL Hematocrit 42.2 42-54 % Mean Corpuscular Volume 94.8 79-99 fL Mean Corpuscular Hemoglobin 32.1 27.0-33.0 pg Mean Corpuscular Hemoglobin Concent 33.9 32.0-36.0 g/dL Red Cell Distribution Width 13.3 11.0-15.5 % Platelet Count 188 130-400 K/uL Mean Platelet Volume 11.1 H 7.5-10.5 fL Immature Granulocyte % (Auto) 0.2 0-1 % Neutrophils (%) (Auto) 73.9 40.0-77.0 % Lymphocytes (%) (Auto) 16.7 L 21.0-51.0 % Monocytes (%) (Auto) 7.1 3.0-13.0 % Eosinophils (%) (Auto) 1.5 0.0-8.0 % Basophils (%) (Auto) 0.6 0.0-5.0 % Neutrophils # (Auto) 6.3 1.8-7.7 K/uL Lymphocytes # (Auto) 1.4 1.0-4.8 K/uL Monocytes # (Auto) 0.6 0.1-1.0 K/uL Eosinophils # (Auto) 0.13 0.00-0.70 K/uL Basophils # (Auto) 0.05 0.00-0.20 K/uL Absolute Immature Granulocyte (auto 0.02 0-1 K/uL Nucleated Red Blood Cells 0.0 0.0-0.19 % Chemistry Labs: Test 08/06/24 06:57 08/06/24 00:03 Range/Units Sodium Level 137 136-145 mmol/L Potassium Level 4.1 3.5-5.1 mmol/L Chloride Level 103 101-111 mmol/L Carbon Dioxide Level 27 21-32 mmol/L Blood Urea Nitrogen 22 H 7-18 mg/dL Creatinine 1.0 0.5-1.3 mg/dL Glomerular Filtration Rate Calc 78 >90 mL/min Random Glucose 120 H 70-105 mg/dL Total Calcium 8.5 8.5-10.1 mg/dL Phosphorus Level 3.9 2.5-4.9 mg/dL Magnesium Level 1.80 1.80-2.40 mg/dL Total Creatine Kinase 383 H 21-232 U/L Troponin I High Sensitivity 7.8 4-75 ng/L Whole Blood Glucose 112 H 70-110 MG/DL Coagulation Labs: Test 08/05/24 18:27 Range/Units Prothrombin Time 10.9 9.6-11.6 SEC Prothromb Time International Ratio 1.03 0.85-1.15 Activated Partial Thromboplast Time 24.5 L 26.3-35.5 SEC DIAGNOSTICS / RADIOLOGY RESULTS: [ ] Signed PATIENT: RODERICK BROWN MR#: [id number] : 1950 SEX: M AGE: 74 LOCATION: [facility] ORDER 2300 STATUS: ADM IN REPORT#: [id number] SERVICE 0400 REASON: ff cxr for pneumo ORDERING PHYSICIAN: ALTAGRACIA VASQUES APRN PROCEDURE: CXR1VW - CHEST 1VW Exam Type: CHEST 1VW Clinical Information: ff cxr for pneumo Comparison: None Findings: Persistent left small mainly apical pneumothorax, with multiple left-sided rib fractures and bilateral chest wall emphysema, left side worse. Stable. Pulmonary pattern is as before. No worrisome interval changes have taken place. Impression: Stable exam. DICTATED BY: COURTNEY SUGGS MD DATE: 08/06/24910 ELECTRONICALLY SIGNED BY: COURTNEY SUGGS MD DATE: 08/06/24913 PLAN CTA chest without contrast in the morning Continue with the non-rebreather 100% FiO2 Monitor for signs of tension pneumo which we will require intervention with chest tube placement. NEURO: Minimize central acting medications as possible. Maintain fall precautions, adequate lighting during the day PULMONARY: Supplemental 02 as needed. Maintain aspiration precautions at all times CARDIOVASCULAR: Follow hemodynamics. Vital signs per facility protocol GI & NUTRITION: Continue with nutritional support. Continue stool softeners and laxatives as needed. KIDNEYS & ELECTROLYTES: Strict monitoring of intake, output and overall fluid balance. Avoid nephrotoxic medications to the extent possible. Medications to be dosed according to renal function. Monitor electrolytes and replace as needed ENDOCRINE: Maintain blood glucose between 100-180 at all times. Hypoglycemia protocol in place INFECTIOUS DISEASE: Trend temperature, WBC and procalcitonin level Follow cultures, deescalate antibiotics as soon as possible. Panculture if new onset fever ONCOLOGY/HEMATOLOGY/COAGULATION: Monitor for s/s of bleeding Monitor hemoglobin, coagulation studies as needed SKIN: Pressure ulcer prevention per facility protocol Specialty mattress ORTHO/REHAB: Continue PT/OT Prophylaxis: Continue GI and DVT prophylaxis Code Status: Full Resuscitation Disposition: TBD Other: Total patient care time exceeds 35 minutes excluding all procedures. ATTESTATION BY PHYSICIAN I reviewed the documentation, medical decision making, and treatment plan as noted by the mid-level provider above. I agree with the findings and plan of care. Ray Faye MD, NELLY J ARNP August 06, 2024 10:03
--- NOTE | 2024-08-06 11:20 | HP ---
Admitting physician: Dr. Song Duncan Reason for consultation: Fall from ground with concerns of subcutaneous emphysema History of present illness: This is a 74-year-old male with a medical history listed below that has been consulted to surgery after presenting to the hospital status post fall from standing position. Patient reports that he was [place] in [place] in [place] where he tripped and fell and hit rail with his left shoulder and his head. No loss of consciousness reported by patient. Patient then decided to drive back to [facility] for medical attention. reporting significant increase in swelling throughout his neck and face and eyes on his travels back to the [facility] to seek hospital attention. On initial admission imaging concerning for extensive subcutaneous emphysema along both sides of the neck. Patient also with concerns of multiple rib fractures and apical pneumothorax. Since presentation significant decrease in swelling noted. Emphysema felt throughout shoulders and neck. Patient is being evaluated by hospitalist team for medical management. Patient otherwise stable. Patient with no shortness of breath and oxygen. Medical history: Hyperlipidemia Diabetes Hypertension Surgical history: Review of systems: General: No Fever, No Chills, No Night Sweats, No Fatigue, No Malaise, No Appetite, No Other HEENT: No Head Aches, No Visual Changes, No Eye Pain, No Ear Pain, No Dysphasia, No Sinus Congestion, No Post Nasal Drip, No Sore Throat, No Other Pulmonary: No Dyspnea, No Cough, No Pleuritic Chest Pain, No Other Cardiovascular: No: Chest Pain, Palpitations, Orthopnea, Paroxysmal No Dyspnea, Edema, Lt Headedness, Other Gastrointestinal: No: Nausea, Vomiting, Diarrhea, Constipation, Melena, Hematochezia, Other Genitourinary: No Dysuria, No Frequency, No Incontinence, No Hematuria, No Retention, No Other Musculoskeletal: No: other, neck pain, shoulder pain, arm pain, back pain, hand pain, leg pain, foot pain Skin: No Urticaria, No Rash, No Other Neurological: No: Weakness, Numbness, Incoordination, Change in speech, Confusion, Seizures, Other Physical exam: General: Awake alert and oriented Improved swelling bilateral neck emphysema Heart: Regular rate and rhythm} Lungs: Clear to auscultation no distress no shortness of breath no immediate chest pain and rib fracture site Patient is mostly complaining of left scapular discomfort Abdomen: [Soft, nontender, nondistended Assessment: This is a 74-year-old male status post fall from ground level with multiple rib fractures and concerns of pneumomediastinum with subcutaneous emphysema and left-sided pneumothorax on presentation Plan: This point in time patient to continue with oxygen mask Patient will be started on incentive spirometry No immediate need for chest tube at this time Repeat chest x-ray in the morning Patient to be allowed diet once cleared by hospitalist team Continue with current pain management for rib fractures Defer to the hospitalist team for medical management Dr. Duncan to be updated on patient's status trauma team will follow patient closely but no immediate trauma intervention planned at this time JOSE CAMACHO Jr. August 06, 2024 11:20
[2024-08-06] MEDS ORDERED: LISI2.5T13 PO (12:34)
--- NOTE | 2024-08-06 16:37 | CONS ---
CONSULT NOTE: This is a 74-year-old male that fell down last night in [place] and came to [facility] to medical attention. He has a history of high blood pressure. He has a history of diabetes mellitus. Patient presented with severe left side the pain and subcutaneous emphysema. Of the primary secondary survey patient had multiple left rib fractures and extensive subcutaneous emphysema and pneumomediastinum as per CT scan. This also shows small apical pneumothorax. P pk has no respiratory distress. I have extensive conversations last night with the emergency physician who tried to refer the patient is [facility] but they denied the transfer indicated the patient was okay to be monitor in our facility. I have seen this the patient this morning around 10:00 a.m.. I have seen the patient with by physician licensed sales assistant. Patient was hemodynamically stable. She has x-ray shows improvement of the subcutaneous emphysema. He shows no respiratory distress. I have phone calls her in the middle of the night and the emphysema was reaching the back of the years in the neck where there was no compromise of the respiration. He is awake alert vital signs are stable. His oxygenation is okay. At this point we will repeat a chest x-ray tomorrow. We will treat the rib fractures conservative with the analgesia. There is no need to place any she is super this point. The patient could started ambulation. He has been tolerating diet. We will follow closely SOO SLOAN MD August 06, 2024 16:37
[2024-08-07 04:00] VITALS: BP 128/72; PULSE 63; RESP 20; TEMP 98.7
--- NOTE | 2024-08-07 06:42 | NUR ---
per RN Arjun too close to shift change to bring pt to CT
[2024-08-07 07:00] VITALS: BP 140/78; PULSE 61; RESP 20; TEMP 97.8
[2024-08-07 07:20] VITALS: PULSE 59; RESP 18; O2SAT 99
[2024-08-07 08:00] VITALS: O2SAT 99
[2024-08-07] MEDS: acetaMINOPHEN WITH coDEINE 1 TAB TAB PO PRN (09:53)
[2024-08-07 11:00] VITALS: BP 128/66; PULSE 69; RESP 20; TEMP 98.1
--- NOTE | 2024-08-07 11:05 | HMCIMG ---
CT NONCONTRAST CHEST Comparison Study: none History: pneumothorax Technique: Helical CT of the chest without IV contrast at 5 mm collimation. Coronal and sagittal reformations also done. CT Dose Index (CTDI): 2.38 mGy Dose Length Product (DLP): 94.8 total mGy-cm Findings: The airway is intact. The trachea and major bronchi are unremarkable. The chest exam shows no pulmonary nodules or masses. Again, significant chest wall emphysema is seen particularly on the left side. Multiple left-sided rib fractures are seen and there is minimal residual 1% left anterior pneumothorax. Minimal anterior pneumomediastinum is seen as well. No pulmonary infiltrates or mass lesions are seen. No pleural effusions are identified. There is no evidence of pneumomediastinum. The nonenhanced exam of the barb and mediastinum is unremarkable. No evidence of hilar enlargement is seen. The aorta shows no aneurysmal dilatation or significant atheromatous calcification. No significant brachiocephalic vascular abnormalities are seen. The heart is unremarkable. It is not enlarged. No significant coronary arterial calcifications are seen. There is no pericardial effusion. The dorsal spine shows no significant abnormalities. IMPRESSION: Residual 1-2% left-sided pneumothorax. Other findings as described. This study was performed using dose reduction techniques to include automated exposure control and/or adjustment of the mA and/or kV according to patient size.
--- NOTE | 2024-08-07 16:15 | PN ---
[facility] PROGRESS NOTE Date Patient Seen: August 07, 2024 Time of Visit: 16:14 Supervising Physician: Edy Lozano MD Consult Physician: Dr. Duncan Outpatient Specialists: [ ] Inpatient Consults: [ ] PROBLEM LIST: Acute hypoxic respiratory failure, POA Left-sided pneumothorax, apical, 5-10% POA Subcutaneous emphysema POA Pneumomediastinum POA Multiple rib fracture, POA Ground level fall Acute pain, POA Hypertension, POA Hyperlipidemia, POA DM type POA PLAN: PCCU care Heart healthy diet VS per unit protocol Continue non-rebreather at 100% Keep head of bed above 30� Repeat chest x-ray in 6 hours Complete bedrest for now Multimodal pain relief Incentive spirometry Cardiac monitoring Keep potassium level above four, magnesium level above two Keep SBP less than 160 P.r.n. hydralazine and labetalol ISS and fingerstick per unit protocol Rest of plan care of Trauma Service INTERVAL HISTORY: Patient is awake alert and oriented x3. No major overnight events. Patient is saturating 99% with 100% BUN non-rebreather. Laboratory unremarkable CK trending down four or five, 383, 367. Patient continues with some subcutaneous emphysema to right eyelid, both sides of the neck. As per family and patient he looks much better. He reports approximately 50% decreasing swelling to his face. There are no clinical signs of tension pneumothorax. We will monitor him closely for any signs of tension pneumo which we will require chest tube placement. For now patient to continue with the non-rebreather 100% FiO2. CT of the chest without contrast in the morning. REVIEW OF SYSTEMS: 12 point ROS reviewed with patient. Pertinent positives mentioned above. Otherwise negative. PHYSICAL EXAM: GENERAL: alert, weak, awake oriented x 3 HEENT: Severe subcutaneous emphysema NECK: Superior subcutaneous emphysema LUNGS: Diminished bibasilar area on auscultation; tenderness to left chest wall on palpation HEART: Regular rate and rhythm. Normal S1 and S2, without murmurs ABD: Abdomen soft, nontender. Bowel sounds present EXT: No clubbing cyanosis or edema NEURO: Alert and oriented to person, follows commands Vital Signs (last 8hr) Date Time Temp Pulse Resp B/P (MAP) Pulse Ox O2 Delivery O2 Flow Rate FiO2 08/07/24 11:00 98.1 69 20 128/66 96 Nonrebreathing Mask 60 LABS: Hematology Labs: Test 08/06/24 06:57 Range/Units White Blood Count 8.6 # 4.8-10.8 K/uL Red Blood Count 4.45 L 4.50-6.20 MIL/uL Hemoglobin 14.3 14.0-18.0 g/dL Hematocrit 42.2 42-54 % Mean Corpuscular Volume 94.8 79-99 fL Mean Corpuscular Hemoglobin 32.1 27.0-33.0 pg Mean Corpuscular Hemoglobin Concent 33.9 32.0-36.0 g/dL Red Cell Distribution Width 13.3 11.0-15.5 % Platelet Count 188 130-400 K/uL Mean Platelet Volume 11.1 H 7.5-10.5 fL Immature Granulocyte % (Auto) 0.2 0-1 % Neutrophils (%) (Auto) 73.9 40.0-77.0 % Lymphocytes (%) (Auto) 16.7 L 21.0-51.0 % Monocytes (%) (Auto) 7.1 3.0-13.0 % Eosinophils (%) (Auto) 1.5 0.0-8.0 % Basophils (%) (Auto) 0.6 0.0-5.0 % Neutrophils # (Auto) 6.3 1.8-7.7 K/uL Lymphocytes # (Auto) 1.4 1.0-4.8 K/uL Monocytes # (Auto) 0.6 0.1-1.0 K/uL Eosinophils # (Auto) 0.13 0.00-0.70 K/uL Basophils # (Auto) 0.05 0.00-0.20 K/uL Absolute Immature Granulocyte (auto 0.02 0-1 K/uL Nucleated Red Blood Cells 0.0 0.0-0.19 % Chemistry Labs: Test 08/07/24 11:42 08/06/24 09:59 08/06/24 06:57 Range/Units Whole Blood Glucose 121 H 70-110 MG/DL Bedside Glucose Comment Notified Nurse Total Creatine Kinase 367 H 21-232 U/L Troponin I High Sensitivity 7.9 4-75 ng/L Sodium Level 137 136-145 mmol/L Potassium Level 4.1 3.5-5.1 mmol/L Chloride Level 103 101-111 mmol/L Carbon Dioxide Level 27 21-32 mmol/L Blood Urea Nitrogen 22 H 7-18 mg/dL Creatinine 1.0 0.5-1.3 mg/dL Glomerular Filtration Rate Calc 78 >90 mL/min Random Glucose 120 H 70-105 mg/dL Total Calcium 8.5 8.5-10.1 mg/dL Phosphorus Level 3.9 2.5-4.9 mg/dL Magnesium Level 1.80 1.80-2.40 mg/dL Coagulation Labs: Test 08/05/24 18:27 Range/Units Prothrombin Time 10.9 9.6-11.6 SEC Prothromb Time International Ratio 1.03 0.85-1.15 Activated Partial Thromboplast Time 24.5 L 26.3-35.5 SEC DIAGNOSTICS / RADIOLOGY RESULTS: [ ] PLAN CTA chest without contrast in the morning Continue with the non-rebreather 100% FiO2 Monitor for signs of tension pneumo which we will require intervention with chest tube placement. NEURO: Minimize central acting medications as possible. Maintain fall precautions, adequate lighting during the day PULMONARY: Supplemental 02 as needed. Maintain aspiration precautions at all times CARDIOVASCULAR: Follow hemodynamics. Vital signs per facility protocol GI & NUTRITION: Continue with nutritional support. Continue stool softeners and laxatives as needed. KIDNEYS & ELECTROLYTES: Strict monitoring of intake, output and overall fluid balance. Avoid nephrotoxic medications to the extent possible. Medications to be dosed according to renal function. Monitor electrolytes and replace as needed ENDOCRINE: Maintain blood glucose between 100-180 at all times. Hypoglycemia protocol in place INFECTIOUS DISEASE: Trend temperature, WBC and procalcitonin level Follow cultures, deescalate antibiotics as soon as possible. Panculture if new onset fever ONCOLOGY/HEMATOLOGY/COAGULATION: Monitor for s/s of bleeding Monitor hemoglobin, coagulation studies as needed SKIN: Pressure ulcer prevention per facility protocol Specialty mattress ORTHO/REHAB: Continue PT/OT Prophylaxis: Continue GI and DVT prophylaxis Code Status: Full Resuscitation Disposition: TBD Other: Total patient care time exceeds 35 minutes excluding all procedures. MADY ELLISON August 07, 2024 16:15
[2024-08-07] MEDS ORDERED: METH-811 PO (16:19)
--- NOTE | 2024-08-07 16:20 | DS ---
[facility] DISCHARGE SUMMARY Date Patient Seen: August 07, 2024 Time of Visit: 16:20 Supervising Physician: Edy Lozano MD Consult Physician: Dr. Duncan Outpatient Specialists: [ ] Inpatient Consults: [ ] PROBLEM LIST: Acute hypoxic respiratory failure, POA, resolved Left-sided pneumothorax, apical, 5-10% POA, resolving now 1-2% residual and minimal pneumomediastinum. Subcutaneous emphysema POA Pneumomediastinum POA Multiple rib fracture, POA Ground level fall Acute pain, POA Hypertension, POA Hyperlipidemia, POA DM type POA HOSPITAL COURSE: HPI This is a 74-year-old male with a past medical history of hypertension, hyperlipidemia and type 2 diabetes mellitus who presented to the emergency department following a mechanical fall. Imaging revealed multiple left-sided rib fractures and associated left apical pneumothorax. The patient was started on 100% FiO2 via non-rebreather mask. Over the course of hospitalization, the p neumothorax significantly improved and was noted to have resolved by hospital day 2. On initial presentation the patient exhibited swelling to the face and neck due to extensive subcutaneous emphysema. This has since resolved. Repeat chest CT showed only a small residual left-sided pneumothorax 1-3% and minimal anterior pneumomediastinum. These findings were reviewed by me and supervising physician DR Lozano. The patient's pain was adequately controlled with oral analgesics, and he remained hemodynamically stable throughout the remainder of his stay. He has been afebrile. On assessment of patient walking to the restroom and back he remains saturating 99% on room air. He denies any dyspnea or orthopnea. Patient is stable to be discharged and agrees to follow up with primary care physician in 1-3 days. Discharge condition: Stable and improved Subcutaneous emphysema resolved Pain we will manage Tolerating oral intake and ambulating independently without oxygen. Discharge instructions: Avoid travel, scuba diving and strenuous physical activity for the next 4-6 week due to risk for pneumothorax suspension or recurrence. Return to the emergency department for any recurrence worsening or facial or neck swelling, shortness of breath or chest pain. Follow up with primary care physician in 1-3 days. Patient and daughter both verbalized understanding and agreed to comply. CHRONIC PROBLEMS: continue previous management per PCP unless otherwise indicated PROCEDURES: as mentioned above DISCHARGE MEDICATIONS: See below Pt hemodynamically stable and afebrile at time of discharge. PCP notified of patient�s admission, hospital course and discharge. New Medications: Methocarbamol (Methocarbamol) 500 Mg Tablet 750 MG PO Q8H PRN for PAIN, #30 TAB 0 Refills as needed for pain Continued Medications: Amlodipine Besylate (Amlodipine Besylate) 10 Mg Tablet 10 MG PO DAILY for 30 Days, #30 TAB 0 Refills Aspirin (Aspirin 81 Mg Ectab) 81 Mg Ectab 81 MG PO DAILY, TAB.EC Atorvastatin Calcium (Lipitor) 40 Mg Tablet 40 MG PO DAILY, TAB Lisinopril (Lisinopril) 2.5 Mg Tablet 1 TAB PO DAILY for 30 Days, #30 TAB 0 Refills Metformin HCl (Metformin HCl) 500 Mg Tablet 500 MG PO DAILY, TAB PHYSICAL EXAM: GENERAL: alert, weak, awake oriented x 3 HEENT: Subcutaneous emphysema has resolved no further swelling to face or neck noted. NECK: Superior subcutaneous has decreased. LUNGS: Clear bilateral lung sounds, tenderness to left chest wall on palpation HEART: Regular rate and rhythm. Normal S1 and S2, without murmurs ABD: Abdomen soft, nontender. Bowel sounds present EXT: No clubbing cyanosis or edema NEURO: Alert and oriented to person, follows commands FOLLOW-UP: Follow-up with PCP in 1-3 days. RECOMMENDATIONS: See Discharge Instructions Per general surgery no indication for chest tube at this time. Pt to continue exercising with his IS. This case was seen and discussed with my supervising physician. More than 30 minutes spent on discharge process, including evaluation of the patient, discussion with nursing staff, medication reconciliation and follow-up appointments MADY ELLISON August 07, 2024 16:20
--- NOTE | 2024-08-07 16:45 | NUR ---
DISCHARGE INSTRUCTIONS WERE GIVEN TO THIS PATIENT AND DAUGHTER AT BEDSIDE. THEY WERE GIVEN EDUCATION ON NEW MEDICATIONS AND THEY BOTH VOICED UNDERSTANDING. PIV TO RIGHT ANTECUBITAL WAS REMOVED WITH CATHETER INTACT AND DRY DRESSING APPLIED TO SITE. TELE PACK WAS REMOVED AND RETURNED TO TELEMETRY ROOM. PATIENT DENIES ANY GENERALIZED PAIN AND DENIES ANY SHORTNESS OF BREATHE. PATIENT WAS TAKEN DOWN TO PRIVATE VEHICLE VIA WHEEL CHAIR. ALL BELONGINGS WERE TAKEN WITH THIS PATIENT.
--- NOTE | 2024-08-08 15:02 | NUR ---
Transitional Phone Call Spoke with the patient, states "feeling great, better than excepted," and he is back at "[facility]." has his prescribed medication; no questions or concerns. Has his follow up appointment with PCP - Dr. Palacios on Sunday08/11/2024 at 0900.
== END 2024-08-07 17:40 | disposition home or self-care (01) | DRG 199 ==
LOC: EDH 18:11 → EDHIP 19:49 → 2AH 08-06 08:25
PROVIDERS: ADMIT Internal Medicine; ATTEND Internal Medicine
DX: T79.7XXA Traumatic subcutaneous emphysema, initial encounter (principal); J96.01 Acute respiratory failure with hypoxia; S22.42XA Multiple fractures of ribs, left side, initial encounter for closed fracture; S27.0XXA Traumatic pneumothorax, initial encounter; I10 Essential (primary) hypertension; E78.5 Hyperlipidemia, unspecified; E11.9 Type 2 diabetes mellitus without complications; K57.30 Diverticulosis of large intestine without perforation or abscess without bleeding; W01.0XXA Fall on same level from slipping, tripping and stumbling without subsequent striking against object, initial encounter; K76.0 Fatty (change of) liver, not elsewhere classified; Y93.89 Activity, other specified; Y92.89 Other specified places as the place of occurrence of the external cause; Y99.8 Other external cause status
CPT/HCPCS: 36415; 70450; 71045; 71250; 71260; 72125; 73030; 74177; 80048; 82550; 82948; 83735; 84100; 84484; 85025; 85610; 85730; 93005; 99285; G0378; J2270; Q9967